=== PATIENT | female | born 1965 | race Caucasian/White ===

== ENCOUNTER 2020-12-24 13:26 | Inpatient (IN) | payer MEDICAID ==
[~2020-12-24] VITALS: Ht 154.9 cm; Wt 80.3 kg
[2020-12-24] MEDS ORDERED: FUROSEMIDE 40MG/4ML VIAL IV ONE (15:15)
[2020-12-24 15:17] LABS: BASOPHILS % 1.4 % (0.0-2.0); EOSINOPHILS % 12.4 % (0.0-5.0); HEMATOCRIT. 26.8 % (36.0-48.0); HEMOGLOBIN. 8.4 g/dL (12.0-16.0); MEAN CORPUSCULAR HEMOGLOBIN 24.5 pg (28.0-32.0); MEAN CORPUSCULAR VOLUME 78.6 fL (81.0-99.0); MEAN PLATELET VOLUME 9.2 fl (7.4-10.4); MONOCYTES % 6.8 % (2.0-8.0); NEUTROPHILS % 64.4 % (40.0-76.0); PLATELET 230 x1000/uL (130-400); RED BLOOD CELL COUNT 3.41 mill/uL (4.2-5.4); RED CELL DISTRIBUTION WIDTH 17.1 % (11.6-14.6)
[2020-12-24 15:26] LABS: CHLORIDE 108 mEq/L (98-107)
[2020-12-24 16:55] LABS: CLARITY URINE CLEAR (CLEAR); COLOR URINE YELLOW (YELLOW); KETONES URINE NEGATIVE (NEGATIVE); LEUKOCYTE ESTERASE URINE 1+ (NEGATIVE); NITRITE URINE NEGATIVE (NEGATIVE); OCCULT BLOOD URINE NEGATIVE (NEGATIVE); PROTEIN URINE 1+ (NEGATIVE); SPECIFIC GRAVITY URINE 1.008 (1.005-1.030); UROBILINOGEN URINE 0.2 E.U./dL (0.2-1.0)
[2020-12-24 23:34] VITALS: BP 159/74
[2020-12-25] VITALS: BP 159/74
[2020-12-25] MEDS ORDERED: HYDROCODONE/ACETAMINOPHEN 5/325MG TABLET PO PRN
[2020-12-25 04:00] VITALS: BP 143/74
[2020-12-25] MEDS: BLOOD SUGAR DIAGNOSTIC STRIP TEST SCH ×4 (06:41→20:24)
[2020-12-25 06:55] LABS: BASOPHILS % 1.1 % (0.0-2.0); EOSINOPHILS % 11.8 % (0.0-5.0); HEMATOCRIT. 23.3 % (36.0-48.0); HEMOGLOBIN. 7.5 g/dL (12.0-16.0); LYMPHOCYTES % 20.5 % (20.0-50.0); MEAN CORPUSCULAR HEMOGLOBIN 25.2 pg (28.0-32.0); MEAN CORPUSCULAR VOLUME 78.5 fL (81.0-99.0); MEAN PLATELET VOLUME 9.1 fl (7.4-10.4); MONOCYTES % 7.8 % (2.0-8.0); NEUTROPHILS % 58.8 % (40.0-76.0); PLATELET 192 x1000/uL (130-400); RED BLOOD CELL COUNT 2.96 mill/uL (4.2-5.4); RED CELL DISTRIBUTION WIDTH 17.4 % (11.6-14.6)
[2020-12-25 07:10] LABS: CHLORIDE 105 mEq/L (98-107)
[2020-12-25 07:30] LABS: LDL CHOLESTEROL 56 mg/dL (5-100)
[2020-12-25 07:31] LABS: HDL CHOLESTEROL 41 mg/dL (40-59)
[2020-12-25 08:00] VITALS: BP 168/58
[2020-12-25] MEDS ORDERED: CARVEDILOL 3.125 MG TABLET PO SCH (09:00)
[2020-12-25] MEDS: FUROSEMIDE 40MG/4ML VIAL IVP SCH ×2 (09:03→20:39)
[2020-12-25] MEDS: LISINOPRIL 20MG TABLET PO SCH (09:04)
[2020-12-25] MEDS: ENOXAPARIN 40MG/0.4ML SYR SUBCUT SCH (09:04)
[2020-12-25] MEDS: ASPIRIN 81MG TABLET PO SCH (09:04)
[2020-12-25] MEDS: INSULIN GLARGINE UD 100 UNITS/ML SYR SUBCUT SCH ×2 (09:50→21:32)
[2020-12-25 11:19] LABS: CLARITY URINE CLEAR (CLEAR); COLOR URINE YELLOW (YELLOW); KETONES URINE NEGATIVE (NEGATIVE); LEUKOCYTE ESTERASE URINE NEGATIVE (NEGATIVE); NITRITE URINE NEGATIVE (NEGATIVE); OCCULT BLOOD URINE TRACE (NEGATIVE); PH URINE 6.5 (4.5-8.0); PROTEIN URINE 1+ (NEGATIVE); SPECIFIC GRAVITY URINE 1.008 (1.005-1.030); UROBILINOGEN URINE 0.2 E.U./dL (0.2-1.0)
[2020-12-25 12:00] VITALS: BP 158/64
[2020-12-25] MEDS: DILTIAZEM HCL 60MG TABLET PO SCH ×2 (14:42→21:13)
[2020-12-25 16:00] VITALS: BP 154/70
[2020-12-25] MEDS ORDERED: IOHEXOL-300 100 ML BOTTLE ONE (16:33)
[2020-12-25 20:00] VITALS: BP 127/56
[2020-12-25] MEDS: ATORVASTATIN CALCIUM 40MG TABLET PO SCH (20:39)
[2020-12-26] VITALS: BP 146/65
[2020-12-26 04:00] VITALS: BP 110/65
[2020-12-26] MEDS: DILTIAZEM HCL 60MG TABLET PO SCH ×3 (07:11→21:17)
[2020-12-26] MEDS: BLOOD SUGAR DIAGNOSTIC STRIP TEST SCH ×2 (07:11→11:54)
[2020-12-26 08:00] VITALS: BP 156/60
[2020-12-26] MEDS: ASPIRIN 81MG TABLET PO SCH (08:41)
[2020-12-26] MEDS: FUROSEMIDE 40MG/4ML VIAL IVP SCH ×2 (08:41→21:17)
[2020-12-26] MEDS: ENOXAPARIN 40MG/0.4ML SYR SUBCUT SCH (08:41)
[2020-12-26] MEDS: LISINOPRIL 20MG TABLET PO SCH (08:42)
[2020-12-26] MEDS: INSULIN GLARGINE UD 100 UNITS/ML SYR SUBCUT SCH ×2 (09:05→21:18)
[2020-12-26 12:00] VITALS: BP 128/71
[2020-12-26] MEDS ORDERED: IPRATROPIUM/ALBUTEROL 0.5-3(2.5)MG/3ML NEB HHN PRN (15:45)
[2020-12-26 16:00] VITALS: BP_SYST 155; BP_SYST 161; BP_DIAS 76; BP_DIAS 80
[2020-12-26 16:26] LABS: TOTAL IRON BINDING CAPACITY 313 ug/dL (250-450)
[2020-12-26] MEDS: METFORMIN HCL 500MG TABLET PO SCH (16:40)
[2020-12-26 20:00] VITALS: BP 149/72
[2020-12-26] MEDS: ATORVASTATIN CALCIUM 40MG TABLET PO SCH (21:19)
[2020-12-27] VITALS: BP 148/72
[2020-12-27 04:00] VITALS: BP 142/73
[2020-12-27] MEDS: DILTIAZEM HCL 60MG TABLET PO SCH ×2 (04:42→09:11)
[2020-12-27 07:07] LABS: BASOPHILS % 1.4 % (0.0-2.0); EOSINOPHILS % 11.3 % (0.0-5.0); HEMATOCRIT. 22.4 % (36.0-48.0); HEMOGLOBIN. 7.2 g/dL (12.0-16.0); LYMPHOCYTES % 17.1 % (20.0-50.0); MEAN CORPUSCULAR HEMOGLOBIN 24.9 pg (28.0-32.0); MEAN CORPUSCULAR VOLUME 77.1 fL (81.0-99.0); MEAN PLATELET VOLUME 8.8 fl (7.4-10.4); MONOCYTES % 7.7 % (2.0-8.0); NEUTROPHILS % 62.5 % (40.0-76.0); PLATELET 196 x1000/uL (130-400); RED BLOOD CELL COUNT 2.91 mill/uL (4.2-5.4); RED CELL DISTRIBUTION WIDTH 17.1 % (11.6-14.6)
[2020-12-27 08:00] VITALS: BP 146/65
[2020-12-27] MEDS ORDERED: LISINOPRIL 10MG TABLET PO SCH (09:00)
[2020-12-27] MEDS: METFORMIN HCL 500MG TABLET PO SCH (09:11)
[2020-12-27] MEDS: ASPIRIN 81MG TABLET PO SCH (09:11)
[2020-12-27] MEDS: FUROSEMIDE 40MG/4ML VIAL IVP SCH (09:11)
[2020-12-27] MEDS: INSULIN GLARGINE UD 100 UNITS/ML SYR SUBCUT SCH (09:15)
[2020-12-27 12:00] VITALS: BP 156/78
[2020-12-27] MEDS ORDERED: DILTIAZEM HCL 90MG TABLET PO SCH (14:00)
[2020-12-27 14:13] VITALS: BP 156/78
== END 2020-12-27 15:55 | disposition home or self-care (01) | DRG 133 ==
LOC: ER 13:26 → 8WST 19:38 → ENRESERV 21:32
PROVIDERS: ADMIT Internal Medicine; ATTEND Internal Medicine
DX: J96.21 Acute and chronic respiratory failure with hypoxia (principal); I11.0 Hypertensive heart disease with heart failure; I50.33 Acute on chronic diastolic (congestive) heart failure; I27.29 Other secondary pulmonary hypertension; I50.813 Acute on chronic right heart failure; Z86.16 Personal history of COVID-19; I07.1 Rheumatic tricuspid insufficiency; E66.9 Obesity, unspecified; E11.9 Type 2 diabetes mellitus without complications; Z79.4 Long term (current) use of insulin; Z99.81 Dependence on supplemental oxygen; Z68.33 Body mass index [BMI] 33.0-33.9, adult
CPT/HCPCS: 36415; 71045; 71275; 80048; 80053; 80061; 81003; 82270; 82728; 82962; 83036; 83540; 83550; 83880; 85025; 93005; 93306; 99291; J1650; J1815; J1940; Q9967

== ENCOUNTER 2021-01-22 00:32 | Inpatient (IN) | payer MEDICAID, OTHER ==
[2021-01-22] VITALS (50 sets, daily range): BP systolic 116–163; BP diastolic 65–106
[~2021-01-22] VITALS: Ht 162.6 cm; Wt 82.1 kg
[2021-01-22] MEDS ORDERED: ETOMIDATE 2MG/ML 10ML VIAL IV ONE (01:00)
[2021-01-22] MEDS ORDERED: PIPERACILLIN/TAZOBACTAM 3.375GM/50ML PREMIX IV ONE (01:00)
[2021-01-22] MEDS ORDERED: PROPOFOL 10MG/ML 100ML 100 ML IV SCH (01:00)
[2021-01-22] MEDS ORDERED: VANCOMYCIN 1 G PREMIX 200 ML IV SCH (01:00)
[2021-01-22] MEDS ORDERED: SODIUM CHLORIDE 0.9% 1,000 ML IV ONE (01:00)
[2021-01-22] MEDS ORDERED: SUCCINYLCHOLINE CHLORIDE 200MG/10ML IV ONE (01:00)
[2021-01-22 01:01] LABS: BASOPHILS % 1.6 % (0.0-2.0); EOSINOPHILS % 5.5 % (0.0-5.0); HEMATOCRIT. 30.1 % (36.0-48.0); HEMOGLOBIN. 9.2 g/dL (12.0-16.0); LYMPHOCYTES % 21.4 % (20.0-50.0); MEAN CORPUSCULAR HEMOGLOBIN 23.6 pg (28.0-32.0); MEAN CORPUSCULAR VOLUME 77.4 fL (81.0-99.0); MEAN PLATELET VOLUME 8.8 fl (7.4-10.4); MONOCYTES % 8.6 % (2.0-8.0); NEUTROPHILS % 62.9 % (40.0-76.0); PLATELET 291 x1000/uL (130-400); RED BLOOD CELL COUNT 3.88 mill/uL (4.2-5.4); RED CELL DISTRIBUTION WIDTH 17.6 % (11.6-14.6)
[2021-01-22 01:05] LABS: CHLORIDE 107 mEq/L (98-107)
[2021-01-22 01:10] LABS: ETHANOL BLOOD < 10 mg/dL
[2021-01-22 01:14] LABS: CREATINE KINASE 98 IU/L (26-192)
[2021-01-22] MEDS ORDERED: PIPERACILLIN/TAZ 3.375G PREMIX 50 ML IV NR (01:15)
[2021-01-22 01:54] LABS: BG BASE EXCESS -0.9 mmol/L (-2.0-2.0); BG CARBOXYHEMOGLOBIN 0.3 % (0.5-1.5); BG DEOXYHEMOGLOBIN 0.5 % (0.0-5.0); BG FRACTION INSPIRED OXYGEN 100; BG HCO3 ACT 27.7 mmol/L (22.0-26.0); BG METHEMOGLOBIN 0.3 % (0.0-1.5); BG OXYGEN SATURATION 99.5 % (92.0-98.5); BG OXYHEMOGLOBIN 98.9 % (94.0-97.0); BG PCO2 68.5 mmHg (35.0-45.0); BG PH 7.224 (7.350-7.450); BG PO2 288.7 mmHg (75.0-100.0); BG SAMPLE SITE RIGHT RADIAL; BG TOTAL HEMOGLOBIN 9.9 g/dL (12.0-18.0); BG VENT MODE VENT - AC
[2021-01-22 01:58] LABS: INR 1.1; PROTHROMBIN TIME 11.6 sec (9.6-11.0)
[2021-01-22] MEDS ORDERED: SODIUM CHLORIDE 0.9% 1,000 ML IV NR (02:00)
[2021-01-22 03:21] LABS: CLARITY URINE CLOUDY (CLEAR); COLOR URINE YELLOW (YELLOW); KETONES URINE TRACE (NEGATIVE); LEUKOCYTE ESTERASE URINE TRACE (NEGATIVE); NITRITE URINE NEGATIVE (NEGATIVE); OCCULT BLOOD URINE 2+ (NEGATIVE); PROTEIN URINE 3+ (NEGATIVE); SPECIFIC GRAVITY URINE 1.019 (1.005-1.030)
[2021-01-22 03:32] LABS: *AMPHETAMINES SCREEN URINE NEGATIVE (NEGATIVE); *BARBITURATES SCREEN URINE NEGATIVE (NEGATIVE); *BENZODIAZEPINES SCREEN URINE NEGATIVE (NEGATIVE); *COCAINE SCREEN URINE NEGATIVE (NEGATIVE); CANNABINOID URINE SCREEN NEGATIVE (NEGATIVE); METHADONE URINE SCREEN NEGATIVE (NEGATIVE)
[2021-01-22 03:33] LABS: OPIATES URINE SCREEN NEGATIVE (NEGATIVE); PHENCYCLIDINE URINE SCREEN NEGATIVE (NEGATIVE)
[2021-01-22] MEDS ORDERED: IOHEXOL-300 100 ML BOTTLE ONE (05:05)
[2021-01-22 08:22] LABS: BG BASE EXCESS 1.5 mmol/L (-2.0-2.0); BG CARBOXYHEMOGLOBIN 0.3 % (0.5-1.5); BG DEOXYHEMOGLOBIN 0.4 % (0.0-5.0); BG FRACTION INSPIRED OXYGEN 100; BG HCO3 ACT 26.7 mmol/L (22.0-26.0); BG METHEMOGLOBIN 0.3 % (0.0-1.5); BG OXYGEN SATURATION 99.6 % (92.0-98.5); BG PCO2 45.5 mmHg (35.0-45.0); BG PH 7.387 (7.350-7.450); BG PO2 344.1 mmHg (75.0-100.0); BG SAMPLE SITE RIGHT BRACHIAL; BG VENT MODE VENT - AC
[2021-01-22] MEDS ORDERED: PROPOFOL 10MG/ML 100ML 100 ML IV PRN (10:30)
[2021-01-22] MEDS ORDERED: MIDAZOLAM HCL 100 MG in SODIUM CHLORIDE 0.9% 80 ML IV PRN (10:30)
[2021-01-22] MEDS ORDERED: FUROSEMIDE 40MG/4ML VIAL IVP NR (10:30)
[2021-01-22] MEDS ORDERED: FENTANYL CITRATE/PF 2,500 MCG in SODIUM CHLORIDE 0.9% 200 ML IV PRN (10:30)
[2021-01-22] MEDS ORDERED: FUROSEMIDE 40MG/4ML VIAL IVP SCH (13:30)
[2021-01-22] MEDS ORDERED: DEXTROSE 50% WATER 50ML SYRINGE IV PRN (13:30)
[2021-01-22] MEDS ORDERED: ACETAMINOPHEN 325MG TABLET PO PRN (13:30)
[2021-01-22] MEDS: AMLODIPINE 10MG TABLET PO SCH (14:15)
[2021-01-22] MEDS: PANTOPRAZOLE SODIUM 40 MG/VIAL IV SCH (14:53)
[2021-01-22] MEDS: FENTANYL CITRATE/PF 2,500 MCG in SODIUM CHLORIDE 0.9% 200 ML IV PRN (15:35)
[2021-01-22] MEDS: BLOOD SUGAR DIAGNOSTIC STRIP TEST SCH ×2 (16:48→20:50)
[2021-01-22] MEDS: INSULIN LISPRO 100 UNITS/ML SUBCUT SCH ×2 (16:48→20:50)
[2021-01-22] MEDS: FUROSEMIDE 40MG/4ML VIAL IVP SCH (17:16)
[2021-01-22] MEDS: HYDRALAZINE 20MG/ML VIAL IV PRN (20:39)
[2021-01-22] MEDS: IRON SUCROSE COMPLEX 100 MG/5 ML ML IV SCH (20:39)
[2021-01-23] VITALS (93 sets, daily range): BP systolic 124–178; BP diastolic 57–93
[2021-01-23 05:50] LABS: BASOPHILS % 1.2 % (0.0-2.0); EOSINOPHILS % 7.3 % (0.0-5.0); HEMATOCRIT. 26.1 % (36.0-48.0); HEMOGLOBIN. 8.3 g/dL (12.0-16.0); LYMPHOCYTES % 15.5 % (20.0-50.0); MEAN CORPUSCULAR HEMOGLOBIN 23.6 pg (28.0-32.0); MEAN CORPUSCULAR VOLUME 73.8 fL (81.0-99.0); MEAN PLATELET VOLUME 8.6 fl (7.4-10.4); MONOCYTES % 9.5 % (2.0-8.0); NEUTROPHILS % 66.5 % (40.0-76.0); PLATELET 223 x1000/uL (130-400); RED BLOOD CELL COUNT 3.54 mill/uL (4.2-5.4); RED CELL DISTRIBUTION WIDTH 17.7 % (11.6-14.6)
[2021-01-23] MEDS: BLOOD SUGAR DIAGNOSTIC STRIP TEST SCH ×4 (06:30→20:40)
[2021-01-23] MEDS: INSULIN LISPRO 100 UNITS/ML SUBCUT SCH ×4 (07:00→20:40)
[2021-01-23 08:06] LABS: BG BASE EXCESS 4.4 mmol/L (-2.0-2.0); BG CARBOXYHEMOGLOBIN 0.5 % (0.5-1.5); BG DEOXYHEMOGLOBIN 0.7 % (0.0-5.0); BG HCO3 ACT 26.8 mmol/L (22.0-26.0); BG METHEMOGLOBIN 0.4 % (0.0-1.5); BG OXYGEN SATURATION 99.3 % (92.0-98.5); BG OXYHEMOGLOBIN 98.4 % (94.0-97.0); BG PCO2 31.4 mmHg (35.0-45.0); BG PH 7.549 (7.350-7.450); BG PO2 196.4 mmHg (75.0-100.0); BG SAMPLE SITE RIGHT RADIAL; BG TOTAL HEMOGLOBIN 8.6 g/dL (12.0-18.0); BG VENT MODE VENT - AC
[2021-01-23] MEDS: AMLODIPINE 10MG TABLET PO SCH (08:44)
[2021-01-23] MEDS: FUROSEMIDE 40MG/4ML VIAL IVP SCH ×2 (09:03→16:14)
[2021-01-23] MEDS: PANTOPRAZOLE SODIUM 40 MG/VIAL IV SCH (09:03)
[2021-01-23] MEDS: HYDRALAZINE 20MG/ML VIAL IV PRN ×2 (10:56→18:50)
[2021-01-23] MEDS: DEXAMETHASONE 10 MG/ML VIAL IV SCH (11:36)
[2021-01-23] MEDS: PIPERACILLIN/TAZOBACTAM 3.375 G in DEXT 5% WATER 100 ML IV SCH ×2 (12:31→20:14)
[2021-01-23] MEDS ORDERED: ENALAPRIL 1.25MG/ML VIAL 1ML IV SCH (16:00)
[2021-01-23 17:52] LABS: TOTAL IRON BINDING CAPACITY 298 ug/dL (250-450)
[2021-01-23 18:11] LABS: FOLIC ACID (FOLATE) SERUM 17.8 ng/mL (>5.38)
[2021-01-23] MEDS: FENTANYL CITRATE/PF 2,500 MCG in SODIUM CHLORIDE 0.9% 200 ML IV PRN (18:11)
[2021-01-23 18:17] LABS: HEPATITIS B SURFACE ANTIGEN NEGATIVE
[2021-01-23 18:46] LABS: HEPATITIS A AB IGM NEGATIVE (NEGATIVE)
[2021-01-23] MEDS: IRON SUCROSE COMPLEX 100 MG/5 ML ML IV SCH (20:14)
[2021-01-24] VITALS (82 sets, daily range): BP systolic 109–155; BP diastolic 51–107
[2021-01-24 05:40] LABS: BASOPHILS % 0.4 % (0.0-2.0); EOSINOPHILS % 0.1 % (0.0-5.0); HEMATOCRIT. 28.5 % (36.0-48.0); HEMOGLOBIN. 9.1 g/dL (12.0-16.0); MEAN CORPUSCULAR HEMOGLOBIN 23.6 pg (28.0-32.0); MEAN CORPUSCULAR VOLUME 74.2 fL (81.0-99.0); MEAN PLATELET VOLUME 8.4 fl (7.4-10.4); MONOCYTES % 6.5 % (2.0-8.0); PLATELET 266 x1000/uL (130-400); RED BLOOD CELL COUNT 3.84 mill/uL (4.2-5.4); RED CELL DISTRIBUTION WIDTH 18.4 % (11.6-14.6)
[2021-01-24] MEDS: BLOOD SUGAR DIAGNOSTIC STRIP TEST SCH ×4 (05:44→20:28)
[2021-01-24] MEDS ORDERED: ENALAPRIL 1.25MG/ML VIAL 1ML IV SCH (06:00)
[2021-01-24] MEDS: INSULIN LISPRO 100 UNITS/ML SUBCUT SCH ×4 (06:02→20:31)
[2021-01-24] MEDS: PIPERACILLIN/TAZOBACTAM 3.375 G in DEXT 5% WATER 100 ML IV SCH ×3 (06:03→12:53)
[2021-01-24 08:04] LABS: BG CARBOXYHEMOGLOBIN 0.3 % (0.5-1.5); BG DEOXYHEMOGLOBIN 1.1 % (0.0-5.0); BG HCO3 ACT 27.5 mmol/L (22.0-26.0); BG METHEMOGLOBIN 0.3 % (0.0-1.5); BG OXYGEN SATURATION 98.9 % (92.0-98.5); BG OXYHEMOGLOBIN 98.3 % (94.0-97.0); BG PCO2 47.6 mmHg (35.0-45.0); BG PO2 147.7 mmHg (75.0-100.0); BG SAMPLE SITE RIGHT RADIAL; BG TOTAL HEMOGLOBIN 9.7 g/dL (12.0-18.0); BG VENT MODE VENT - AC
[2021-01-24] MEDS: FUROSEMIDE 40MG/4ML VIAL IVP SCH ×2 (09:13→16:38)
[2021-01-24] MEDS: DEXAMETHASONE 10 MG/ML VIAL IV SCH (09:13)
[2021-01-24] MEDS: PANTOPRAZOLE SODIUM 40 MG/VIAL IV SCH (09:14)
[2021-01-24] MEDS: AMLODIPINE 10MG TABLET PO SCH (09:14)
[2021-01-24] MEDS ORDERED: HYDRALAZINE HCL 100MG TABLET PO NR (11:45)
[2021-01-24] MEDS: MEROPENEM 1000MG in NORMAL SALINE 100ML IV SCH ×2 (14:48→22:15)
[2021-01-24 14:59] LABS: BG BASE EXCESS 4.5 mmol/L (-2.0-2.0); BG CARBOXYHEMOGLOBIN 0.3 % (0.5-1.5); BG DEOXYHEMOGLOBIN 1.8 % (0.0-5.0); BG FRACTION INSPIRED OXYGEN 45; BG HCO3 ACT 29.8 mmol/L (22.0-26.0); BG METHEMOGLOBIN 0.4 % (0.0-1.5); BG OXYGEN SATURATION 98.2 % (92.0-98.5); BG OXYHEMOGLOBIN 97.5 % (94.0-97.0); BG PCO2 48.4 mmHg (35.0-45.0); BG PH 7.407 (7.350-7.450); BG PO2 129.5 mmHg (75.0-100.0); BG SAMPLE SITE RIGHT RADIAL; BG TOTAL HEMOGLOBIN 9.1 g/dL (12.0-18.0); BG VENT MODE VENT - SIMV
[2021-01-24 17:39] LABS: BG BASE EXCESS 3.3 mmol/L (-2.0-2.0); BG CARBOXYHEMOGLOBIN 0.3 % (0.5-1.5); BG DEOXYHEMOGLOBIN 3.1 % (0.0-5.0); BG HCO3 ACT 28.8 mmol/L (22.0-26.0); BG METHEMOGLOBIN 0.2 % (0.0-1.5); BG OXYGEN SATURATION 96.9 % (92.0-98.5); BG OXYHEMOGLOBIN 96.4 % (94.0-97.0); BG PCO2 48.3 mmHg (35.0-45.0); BG PH 7.393 (7.350-7.450); BG PO2 94.3 mmHg (75.0-100.0); BG SAMPLE SITE RIGHT RADIAL; BG TOTAL HEMOGLOBIN 10.1 g/dL (12.0-18.0); BG VENT MODE VENT - CPAP
[2021-01-24] MEDS ORDERED: RACEPINEPHRINE 2.25% 0.5ML NEB VIAL HHN NR (19:15)
[2021-01-24] MEDS: HYDRALAZINE HCL 100MG TABLET PO SCH (20:15)
[2021-01-24] MEDS: IRON SUCROSE COMPLEX 100 MG/5 ML ML IV SCH (20:16)
[2021-01-24 22:17] LABS: BG BASE EXCESS 4.5 mmol/L (-2.0-2.0); BG CARBOXYHEMOGLOBIN 0.2 % (0.5-1.5); BG DEOXYHEMOGLOBIN 3.7 % (0.0-5.0); BG FRACTION INSPIRED OXYGEN 40; BG HCO3 ACT 29.3 mmol/L (22.0-26.0); BG METHEMOGLOBIN 0.2 % (0.0-1.5); BG OXYGEN SATURATION 96.3 % (92.0-98.5); BG OXYHEMOGLOBIN 95.9 % (94.0-97.0); BG PCO2 44.8 mmHg (35.0-45.0); BG PH 7.433 (7.350-7.450); BG PO2 85.9 mmHg (75.0-100.0); BG SAMPLE SITE RIGHT RADIAL; BG VENT MODE COOL AEROSOL
[2021-01-25] VITALS (78 sets, daily range): BP systolic 83–158; BP diastolic 51–85
[2021-01-25 05:43] LABS: BASOPHILS % 0.4 % (0.0-2.0); EOSINOPHILS % 0.6 % (0.0-5.0); HEMATOCRIT. 27.1 % (36.0-48.0); HEMOGLOBIN. 8.6 g/dL (12.0-16.0); LYMPHOCYTES % 15.5 % (20.0-50.0); MEAN CORPUSCULAR HEMOGLOBIN 23.8 pg (28.0-32.0); MEAN PLATELET VOLUME 8.4 fl (7.4-10.4); MONOCYTES % 8.4 % (2.0-8.0); NEUTROPHILS % 75.1 % (40.0-76.0); PLATELET 220 x1000/uL (130-400); RED BLOOD CELL COUNT 3.62 mill/uL (4.2-5.4); RED CELL DISTRIBUTION WIDTH 17.9 % (11.6-14.6)
[2021-01-25] MEDS: BLOOD SUGAR DIAGNOSTIC STRIP TEST SCH ×4 (06:43→21:13)
[2021-01-25] MEDS: MEROPENEM 1000MG in NORMAL SALINE 100ML IV SCH ×3 (06:44→22:25)
[2021-01-25] MEDS: INSULIN LISPRO 100 UNITS/ML SUBCUT SCH ×4 (06:51→21:16)
[2021-01-25 08:55] LABS: BG BASE EXCESS 5.4 mmol/L (-2.0-2.0); BG CARBOXYHEMOGLOBIN 0.3 % (0.5-1.5); BG DEOXYHEMOGLOBIN 3.6 % (0.0-5.0); BG FRACTION INSPIRED OXYGEN 40; BG HCO3 ACT 30.7 mmol/L (22.0-26.0); BG METHEMOGLOBIN 0.1 % (0.0-1.5); BG OXYGEN SATURATION 96.4 % (92.0-98.5); BG PCO2 49.2 mmHg (35.0-45.0); BG PH 7.413 (7.350-7.450); BG SAMPLE SITE RIGHT RADIAL; BG TOTAL HEMOGLOBIN 9.3 g/dL (12.0-18.0); BG VENT MODE COOL AEROSOL
[2021-01-25] MEDS: HYDRALAZINE HCL 100MG TABLET PO SCH ×3 (08:56→09:00)
[2021-01-25] MEDS: FUROSEMIDE 40MG/4ML VIAL IVP SCH ×2 (08:59→17:00)
[2021-01-25] MEDS: PANTOPRAZOLE SODIUM 40 MG/VIAL IV SCH (08:59)
[2021-01-25] MEDS: DEXAMETHASONE 10 MG/ML VIAL IV SCH (08:59)
[2021-01-25] MEDS: AMLODIPINE 10MG TABLET PO SCH (09:01)
[2021-01-25] MEDS: ONDANSETRON HCL 4MG/2ML INJ IV PRN (09:03)
[2021-01-25] MEDS: LORAZEPAM 2MG/ML CPJ IV PRN ×2 (09:51→16:54)
[2021-01-25] MEDS: FERROUS SULFATE 300MG/5ML UDC PO SCH ×2 (11:38→16:59)
[2021-01-26] VITALS (11 sets, daily range): BP systolic 122–158; BP diastolic 45–90
[2021-01-26] MEDS: MEROPENEM 1000MG in NORMAL SALINE 100ML IV SCH ×3 (06:02→22:06)
[2021-01-26] MEDS: BLOOD SUGAR DIAGNOSTIC STRIP TEST SCH ×4 (06:07→20:54)
[2021-01-26 06:24] LABS: BASOPHILS % 0.5 % (0.0-2.0); EOSINOPHILS % 0.2 % (0.0-5.0); HEMATOCRIT. 27.3 % (36.0-48.0); HEMOGLOBIN. 8.7 g/dL (12.0-16.0); LYMPHOCYTES % 14.5 % (20.0-50.0); MEAN CORPUSCULAR HEMOGLOBIN 24.2 pg (28.0-32.0); MEAN PLATELET VOLUME 8.5 fl (7.4-10.4); MONOCYTES % 8.8 % (2.0-8.0); PLATELET 198 x1000/uL (130-400); RED BLOOD CELL COUNT 3.59 mill/uL (4.2-5.4)
[2021-01-26] MEDS: INSULIN LISPRO 100 UNITS/ML SUBCUT SCH ×4 (07:20→20:54)
[2021-01-26] MEDS: AMLODIPINE 10MG TABLET PO SCH (09:40)
[2021-01-26] MEDS: FERROUS SULFATE 300MG/5ML UDC PO SCH ×3 (09:40→16:56)
[2021-01-26] MEDS: HYDRALAZINE HCL 100MG TABLET PO SCH ×2 (09:40→20:48)
[2021-01-26] MEDS: PANTOPRAZOLE SODIUM 40 MG/VIAL IV SCH (09:41)
[2021-01-26] MEDS: FUROSEMIDE 40MG/4ML VIAL IVP SCH ×2 (09:41→16:57)
[2021-01-26] MEDS ORDERED: LACTULOSE 20G/30ML UDC PO NR (10:00)
[2021-01-26] MEDS ORDERED: BISACODYL 10MG SUPP PR NR (10:00)
[2021-01-26] MEDS: ONDANSETRON HCL 4MG/2ML INJ IV PRN (12:58)
[2021-01-26] MEDS ORDERED: CLONIDINE 0.1MG TABLET PO PRN (19:15)
[2021-01-27] VITALS (23 sets, daily range): BP systolic 103–170; BP diastolic 48–90
[2021-01-27] MEDS: BLOOD SUGAR DIAGNOSTIC STRIP TEST SCH ×4 (05:56→21:57)
[2021-01-27] MEDS: MEROPENEM 1000MG in NORMAL SALINE 100ML IV SCH ×3 (06:14→23:04)
[2021-01-27] MEDS: INSULIN LISPRO 100 UNITS/ML SUBCUT SCH ×4 (07:20→21:00)
[2021-01-27 07:41] LABS: BASOPHILS % 0.7 % (0.0-2.0); EOSINOPHILS % 9.1 % (0.0-5.0); HEMATOCRIT. 27.5 % (36.0-48.0); HEMOGLOBIN. 8.6 g/dL (12.0-16.0); LYMPHOCYTES % 16.9 % (20.0-50.0); MEAN CORPUSCULAR HEMOGLOBIN 23.7 pg (28.0-32.0); MEAN CORPUSCULAR VOLUME 75.4 fL (81.0-99.0); MEAN PLATELET VOLUME 8.2 fl (7.4-10.4); MONOCYTES % 8.6 % (2.0-8.0); NEUTROPHILS % 64.7 % (40.0-76.0); PLATELET 180 x1000/uL (130-400); RED BLOOD CELL COUNT 3.64 mill/uL (4.2-5.4)
[2021-01-27 07:52] LABS: CHLORIDE 108 mEq/L (98-107)
[2021-01-27] MEDS: FUROSEMIDE 40MG/4ML VIAL IVP SCH ×2 (08:23→16:44)
[2021-01-27] MEDS: PANTOPRAZOLE SODIUM 40 MG/VIAL IV SCH (08:23)
[2021-01-27] MEDS: FERROUS SULFATE 300MG/5ML UDC PO SCH ×3 (08:23→16:44)
[2021-01-27] MEDS: AMLODIPINE 10MG TABLET PO SCH (08:25)
[2021-01-27] MEDS: HYDRALAZINE HCL 100MG TABLET PO SCH ×2 (08:25→21:59)
[2021-01-27] MEDS ORDERED: DOCU250C14 MT (11:08)
[2021-01-27] MEDS ORDERED: FE300LUD PO (11:08)
[2021-01-27] MEDS ORDERED: POTA20TA82 MT (11:08)
[2021-01-27] MEDS ORDERED: AMLO10TA80 PO (11:08)
[2021-01-27] MEDS ORDERED: HYDR100T26 PO (11:08)
[2021-01-27] MEDS ORDERED: FURO-151 MT (11:08)
[2021-01-27] MEDS ORDERED: POTASSIUM CHLORIDE 20MEQ TABLET SR PO NR (11:15)
[2021-01-27] MEDS: CLONIDINE 0.1MG TABLET PO PRN (16:02)
[2021-01-27] MEDS: IPRATROPIUM/ALBUTEROL 0.5-3(2.5)MG/3ML NEB HHN SCH (20:07)
[2021-01-28] VITALS (17 sets, daily range): BP systolic 136–168; BP diastolic 58–85
[2021-01-28] MEDS ORDERED: IOHEXOL-350 100 ML BOTTLE ONE (00:07)
[2021-01-28] MEDS: IPRATROPIUM/ALBUTEROL 0.5-3(2.5)MG/3ML NEB HHN SCH ×4 (01:42→21:32)
[2021-01-28 06:06] LABS: CHLORIDE 106 mEq/L (98-107)
[2021-01-28 06:12] LABS: BASOPHILS % 0.7 % (0.0-2.0); HEMATOCRIT. 27.8 % (36.0-48.0); HEMOGLOBIN. 8.7 g/dL (12.0-16.0); LYMPHOCYTES % 16.9 % (20.0-50.0); MEAN CORPUSCULAR HEMOGLOBIN 23.8 pg (28.0-32.0); MEAN CORPUSCULAR VOLUME 75.8 fL (81.0-99.0); MEAN PLATELET VOLUME 8.2 fl (7.4-10.4); MONOCYTES % 8.4 % (2.0-8.0); PLATELET 160 x1000/uL (130-400); RED BLOOD CELL COUNT 3.66 mill/uL (4.2-5.4)
[2021-01-28] MEDS: MEROPENEM 1000MG in NORMAL SALINE 100ML IV SCH ×3 (06:30→22:13)
[2021-01-28] MEDS: BLOOD SUGAR DIAGNOSTIC STRIP TEST SCH ×4 (06:30→20:23)
[2021-01-28] MEDS: INSULIN LISPRO 100 UNITS/ML SUBCUT SCH ×4 (07:20→20:23)
[2021-01-28] MEDS: FERROUS SULFATE 300MG/5ML UDC PO SCH ×3 (07:44→17:15)
[2021-01-28] MEDS: FUROSEMIDE 40MG/4ML VIAL IVP SCH ×2 (08:20→17:16)
[2021-01-28] MEDS: FAMOTIDINE 20MG/2ML VIAL IV SCH ×2 (08:20→20:22)
[2021-01-28] MEDS: HYDRALAZINE HCL 100MG TABLET PO SCH ×2 (08:22→20:23)
[2021-01-28] MEDS: AMLODIPINE 10MG TABLET PO SCH (08:22)
[2021-01-28] MEDS ORDERED: POTASSIUM CHLORIDE 20MEQ TABLET SR PO NR (10:15)
[2021-01-28 12:35] LABS: INR 1.1; PROTHROMBIN TIME 11.9 sec (9.6-11.0)
[2021-01-28] MEDS ORDERED: SODIUM BICARBONATE 4% (2.4MEQ) 5ML VIAL IV ONE (13:11)
[2021-01-28] MEDS: CLONIDINE 0.1MG TABLET PO PRN (23:53)
[2021-01-29] VITALS (17 sets, daily range): BP systolic 138–168; BP diastolic 47–87
[2021-01-29] MEDS: IPRATROPIUM/ALBUTEROL 0.5-3(2.5)MG/3ML NEB HHN SCH ×4 (02:44→20:24)
[2021-01-29] MEDS: MEROPENEM 1000MG in NORMAL SALINE 100ML IV SCH ×2 (05:57→14:28)
[2021-01-29] MEDS: BLOOD SUGAR DIAGNOSTIC STRIP TEST SCH ×4 (05:59→21:35)
[2021-01-29 06:59] LABS: BASOPHILS % 1.4 % (0.0-2.0); EOSINOPHILS % 8.3 % (0.0-5.0); HEMATOCRIT. 27.3 % (36.0-48.0); HEMOGLOBIN. 8.5 g/dL (12.0-16.0); LYMPHOCYTES % 19.9 % (20.0-50.0); MEAN CORPUSCULAR HEMOGLOBIN 23.5 pg (28.0-32.0); MEAN CORPUSCULAR VOLUME 75.4 fL (81.0-99.0); MEAN PLATELET VOLUME 8.5 fl (7.4-10.4); MONOCYTES % 7.6 % (2.0-8.0); NEUTROPHILS % 62.8 % (40.0-76.0); PLATELET 145 x1000/uL (130-400); RED BLOOD CELL COUNT 3.62 mill/uL (4.2-5.4); RED CELL DISTRIBUTION WIDTH 18.4 % (11.6-14.6)
[2021-01-29 07:07] LABS: CHLORIDE 104 mEq/L (98-107)
[2021-01-29] MEDS: INSULIN LISPRO 100 UNITS/ML SUBCUT SCH ×4 (07:20→21:35)
[2021-01-29] MEDS: AMLODIPINE 10MG TABLET PO SCH (08:54)
[2021-01-29] MEDS: FAMOTIDINE 20MG/2ML VIAL IV SCH ×2 (08:54→21:34)
[2021-01-29] MEDS: FUROSEMIDE 40MG/4ML VIAL IVP SCH ×2 (08:54→18:17)
[2021-01-29] MEDS: HYDRALAZINE HCL 100MG TABLET PO SCH ×2 (08:54→21:34)
[2021-01-29] MEDS: FERROUS SULFATE 300MG/5ML UDC PO SCH ×3 (08:54→18:17)
[2021-01-29] MEDS ORDERED: SODIUM BICARBONATE 4% (2.4MEQ) 5ML VIAL IV ONE (11:07)
[2021-01-30] VITALS (10 sets, daily range): BP systolic 112–163; BP diastolic 46–86
[2021-01-30] MEDS: IPRATROPIUM/ALBUTEROL 0.5-3(2.5)MG/3ML NEB HHN SCH ×4 (01:39→20:21)
[2021-01-30] MEDS: BLOOD SUGAR DIAGNOSTIC STRIP TEST SCH ×4 (06:24→20:16)
[2021-01-30] MEDS: INSULIN LISPRO 100 UNITS/ML SUBCUT SCH ×4 (06:24→20:18)
[2021-01-30] MEDS: FERROUS SULFATE 300MG/5ML UDC PO SCH ×3 (06:30→18:13)
[2021-01-30] MEDS: FUROSEMIDE 40MG/4ML VIAL IVP SCH ×2 (09:40→18:12)
[2021-01-30] MEDS: AMLODIPINE 10MG TABLET PO SCH (09:40)
[2021-01-30] MEDS: HYDRALAZINE HCL 100MG TABLET PO SCH ×2 (09:40→20:53)
[2021-01-30] MEDS: FAMOTIDINE 20MG/2ML VIAL IV SCH ×2 (09:40→20:53)
[2021-01-31] VITALS (9 sets, daily range): BP systolic 122–159; BP diastolic 65–99
[2021-01-31] MEDS: IPRATROPIUM/ALBUTEROL 0.5-3(2.5)MG/3ML NEB HHN SCH ×2 (01:42→08:34)
[2021-01-31] MEDS: BLOOD SUGAR DIAGNOSTIC STRIP TEST SCH (06:39)
[2021-01-31] MEDS: AMLODIPINE 10MG TABLET PO SCH (08:21)
[2021-01-31] MEDS: FUROSEMIDE 40MG/4ML VIAL IVP SCH (08:21)
[2021-01-31] MEDS: FAMOTIDINE 20MG/2ML VIAL IV SCH (08:21)
[2021-01-31] MEDS: FERROUS SULFATE 300MG/5ML UDC PO SCH (08:21)
[2021-01-31] MEDS: HYDRALAZINE HCL 100MG TABLET PO SCH (08:22)
[2021-01-31] MEDS: INSULIN LISPRO 100 UNITS/ML SUBCUT SCH (08:22)
== END 2021-01-31 12:30 | disposition home or self-care (01) | DRG 720 ==
LOC: ER 00:32 → MICUSO 05:00 → EDBEDREQSVC 05:02 → EDBEDREQ 05:02 → EDBEDREQTM 05:02 → ENRESERV 06:31 → 3WST 01-25 20:54
PROVIDERS: ADMIT Internal Medicine; ATTEND Internal Medicine
PROC: 5A1945Z Respiratory Ventilation, 24-96 Consecutive Hours (ICD-10-PCS; principal; 2021-01-22)
PROC: 0BH17EZ Insertion of Endotracheal Airway into Trachea, Via Natural or Artificial Opening (ICD-10-PCS; 2021-01-22)
PROC: 05HY33Z Insertion of Infusion Device into Upper Vein, Percutaneous Approach (ICD-10-PCS; 2021-01-22)
PROC: B54MZZA Ultrasonography of Right Upper Extremity Veins, Guidance (ICD-10-PCS; 2021-01-22)
PROC: 0W9G3ZX Drainage of Peritoneal Cavity, Percutaneous Approach, Diagnostic (ICD-10-PCS; 2021-01-24)
PROC: 0W9B3ZZ Drainage of Left Pleural Cavity, Percutaneous Approach (ICD-10-PCS; 2021-01-28)
PROC: 0W993ZZ Drainage of Right Pleural Cavity, Percutaneous Approach (ICD-10-PCS; 2021-01-29)
DX: A41.51 Sepsis due to Escherichia coli [E. coli] (principal); J96.02 Acute respiratory failure with hypercapnia; U07.1 COVID-19; N17.0 Acute kidney failure with tubular necrosis; J91.8 Pleural effusion in other conditions classified elsewhere; J84.89 Other specified interstitial pulmonary diseases; R18.8 Other ascites; I07.1 Rheumatic tricuspid insufficiency; R16.1 Splenomegaly, not elsewhere classified; I27.20 Pulmonary hypertension, unspecified; G90.8 Other disorders of autonomic nervous system; I11.0 Hypertensive heart disease with heart failure; I50.810 Right heart failure, unspecified; I50.32 Chronic diastolic (congestive) heart failure; D25.9 Leiomyoma of uterus, unspecified; D50.9 Iron deficiency anemia, unspecified; E11.9 Type 2 diabetes mellitus without complications; E66.9 Obesity, unspecified; Z16.12 Extended spectrum beta lactamase (ESBL) resistance; R00.1 Bradycardia, unspecified; K57.90 Diverticulosis of intestine, part unspecified, without perforation or abscess without bleeding; K80.20 Calculus of gallbladder without cholecystitis without obstruction; K76.9 Liver disease, unspecified; N39.0 Urinary tract infection, site not specified; Z99.81 Dependence on supplemental oxygen; Z68.31 Body mass index [BMI] 31.0-31.9, adult; Z78.1 Physical restraint status; Z87.01 Personal history of pneumonia (recurrent)
CPT/HCPCS: 32555; 36415; 36600; 49083; 71045; 71275; 74177; 76700; 76937; 80048; 80053; 80305; 80320; 81003; 82040; 82140; 82375; 82550; 82607; 82728; 82746; 82805; 82962; 83540; 83550; 83605; 83615; 83880; 83986; 84145; 84155; 84478; 84484; 85025; 85044; 86705; 86709; 86803; 87077; 87186; 87340; 87426; 88108; 88312; 92610; 93005; 94002; 94003; 94640; 99285; C1725; C9113; J0330; J0360; J1100; J1815; J1940; J2060; J2185; J2250; J2405; J2543; J2704; J3010; J3370; J3490; J7030; J7040; J7050; J7060; Q9967; U0003; G0480